=== PATIENT | female | born 1995 | race American Indian/Alaskan Native ===

== ENCOUNTER 2022-04-12 13:39 | Emergency (ER) | payer SELFPAY ==
[2022-04-12 13:54] VITALS: BP 125/67
--- NOTE | 2022-04-12 18:39 | Emergency Department Report ---
ED General Adult HPI - General Chief complaint: Vaginal Bleeding Stated complaint: BLEEDING 35 DAYS Time Seen by Provider: 04/12/22 18:26 Source: patient, RN notes reviewed Mode of arrival: Ambulatory Limitations: No Limitations - History of Present Illness Initial comments: The patient was evaluated in the emergency department for symptoms described in the history of present illness. He/she was evaluated in the context of the global COVID-19 pandemic, which necessitated consideration that the patient might be at risk for infection with the virus that causes COVID-19. Institutional protocols and algorithms that pertain to the evaluation of patients at risk for COVID-19 are in a state of rapid change based on information released by regulatory bodies including the CDC and federal and state organizations. These policies and algorithms were followed during the patient's care in the emergency department. Please note that these policies, procedures and recommendations changed on a rapid basis. The patient is a 27-year-old female who states that she is not , presenting with 35 days of painless vaginal bleeding. Patient reports that she has an outpatient follow-up with an [facility] doctor. Patient reports that she has been seen at multiple other emergency room's, without a definitive answer. The patient denies additional injuries and complaints. The patient is currently watching videos on her cell phone, and eating potato chips. The patient refuses a tactile physical examination. -: days(s) Consistency: constant Improves with: none Worsens with: none Associated Symptoms: denies other symptoms - Related Data Allergies Allergy/AdvReac Type Severity Reaction Status Date / Time No Known Allergies Allergy Unverified 04/12/22 13:49 ED Review of Systems ROS: Stated complaint: BLEEDING 35 DAYS Other details as noted in HPI Constitutional: denies: fever Eyes: denies: eye discharge ENT: denies: epistaxis Respiratory: denies: cough Cardiovascular: denies: chest pain Gastrointestinal: denies: abdominal pain Genitourinary: abnormal menses ED Past Medical Hx - Past Medical History Previous Medical History?: No - Surgical History Additional Surgical History: ED Physical Exam - General Limitations: No Limitations General appearance: alert, in no apparent distress - Head Head exam: Present: atraumatic, normocephalic - Eye Eye exam: Present: normal appearance, EOMI. Absent: nystagmus - ENT ENT exam: Present: normal exam, normal orophraynx, mucous membranes moist, normal external ear exam - Neck Neck exam: Present: normal inspection - Respiratory Respiratory exam: Absent: respiratory distress, stridor - Extremities Exam Extremities exam: Present: normal inspection, full ROM - Neurological Exam Neurological exam: Present: alert, oriented X3, other (There is no facial droop. The tongue is midline. The eye. Moving 4 extremities spontaneously) - Psychiatric Psychiatric exam: Present: normal affect, normal mood - Skin Skin exam: Present: warm, dry, intact, normal color. Absent: rash ED Course Vital Signs 04/12/22 13:53 Temperature 98.8 F Pulse Rate 84 Respiratory 18 Rate Blood Pressure 125/67 O2 Sat by Pulse 99 Oximetry ED Medical Decision Making - Lab Data Vital Signs 04/12/22 13:53 Temperature 98.8 F Pulse Rate 84 Respiratory 18 Rate Blood Pressure 125/67 O2 Sat by Pulse 99 Oximetry - Medical Decision Making Differential diagnosis, include but not limited to: Dysfunctional uterine bleeding, , anemia Assessment and plan: 27-year-old female, who is afebrile, with reassuring vital signs, who is clinically sober and exhibits decision-making capacity, who currently refuses a tactile physical examination. Observed physical examination as documented. Recommend CBC, type and screen, physical examination, and quant hCG. Discussed rationale for recommending these tests. Patient awake, alert, oriented, and is of sound mind. Patient refused physical examination otherwise. Patient refused the aforementioned laboratory studies. Patient left the emergency room without telling anyone. Critical care attestation.: If time is entered above; I have spent that time in minutes in the direct care of this critically ill patient, excluding procedure time. ED Disposition Clinical Impression: History of vaginal bleeding Disposition: LEFT AWOL/ELOPED Is pt being admited?: No Does the pt Need Aspirin: No Condition: Undetermined Referrals: PRIMARY CARE, [Primary Care Provider] - 3-5 Days
== END 2022-04-12 23:00 | disposition left against medical advice (07) ==
LOC: ED 13:39
DX: N93.9 Abnormal uterine and vaginal bleeding, unspecified (principal); R29.810 Facial weakness
CPT/HCPCS: 99281